=== PATIENT | male | born 1995 | race Caucasian/White ===

== ENCOUNTER 2016-07-28 13:55 | Emergency (ER) | payer OTHER ==
[2016-07-28 14:37] VITALS: BP 127/60; PULSE 66; RESP 14; TEMP 97.7; O2SAT 96
--- NOTE | 2016-07-28 15:16 | UCPHY ---
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 L index finger N/T with laceration. Time Seen by Provider: 07/28/16 15:07 HPI/ROS: CHIEF COMPLAINT: dog bite HISTORY OF PRESENT ILLNESS: The patient is a 21-year-old boy a who tried to break up a fight between his black lab and his waterman retriever. One of them bit him in the finger. Both of them are up-to-date on their vaccinations. The patient is up-to-date on his tetanus. He has a injury to his left index finger primarily to the medial aspect. There is some tissue missing. No obvious fingernail deformity. Normal sensation and movement. REVIEW OF SYSTEMS: Constitutional: denies: chills, fever, recent illness, recent injury EENTM: denies: blurred vision, double vision, nose congestion Respiratory: denies: cough, shortness of breath Cardiac: denies: chest pain, irregular heart rate, lightheadedness, palpitations Gastrointestinal/Abdominal: denies: abdominal pain, diarrhea, nausea, vomiting, blood streaked stools Genitourinary: denies: dysuria, frequency, hematuria, pain Musculoskeletal: denies: joint pain, muscle pain Skin: See HPI Neurological: denies: headache, numbness, paresthesia, tingling, dizziness, weakness Hematologic/Lymphatic: denies: blood clots, easy bleeding, easy bruising Immunologic/allergic: denies: HIV/AIDS, transplant EXAM: GENERAL: Well-appearing, well-nourished and in no acute distress. HEAD: Atraumatic, normocephalic. EYES: Pupils equal round and reactive to light, extraocular movements intact, sclera anicteric, conjunctiva are normal. ENT: TMs normal, nares patent, oropharynx clear without exudates. Moist mucous membranes. NECK: Normal range of motion, supple without lymphadenopathy or JVD. LUNGS: Breath sounds clear to auscultation bilaterally and equal. No wheezes rales or rhonchi. HEART: Regular rate and rhythm without murmurs, rubs or gallops. ABDOMEN: Soft, nontender, normoactive bowel sounds. No guarding, no rebound. No masses appreciated. BACK: No CVA tenderness, no spinal tenderness, step-offs or deformities EXTREMITIES: Left index finger with avulsion/laceration and missing tissue. It is not deep. No visible deformity or fracture. Nail or nail bed injury. normal sensation capillary refill distally. Normal range of motion, no pitting or edema. No clubbing or cyanosis. NEUROLOGICAL: Cranial nerves II through XII grossly intact. Normal speech, normal gait. 5/5 strength, normal movement in all extremities, normal sensation PSYCH: Normal mood, normal affect. SKIN: See above Source: Patient Exam Limitations: No limitations - Personal History Current Tetanus Diphtheria and Acellular Pertussis (TDAP): Yes Tetanus Vaccine Date: 2014 - Medical/Surgical History Hx Asthma: Yes Hx Chronic Respiratory Disease: No Hx Diabetes: No Hx Cardiac Disease: No Hx Renal Disease: No Hx Cirrhosis: No Hx Alcoholism: No Hx HIV/AIDS: No Hx Splenectomy or Spleen Trauma: No Other PMH: asthma - Family History Significant Family History: No pertinent family hx - Social History Smoking Status: Never smoked Alcohol Use: Sober Drug Use: None Constitutional: Initial Vital Signs Temperature (C) 36.5 C 07/28/16 14:30 Heart Rate 66 07/28/16 14:30 Respiratory Rate 14 07/28/16 14:30 Blood Pressure 127/60 H 07/28/16 14:30 O2 Sat (%) 96 07/28/16 14:30 O2 Delivery Mode Room Air Allergies/Adverse Reactions: No Known Allergies Allergy (Unverified 07/28/16 14:29) Home Medications: Medication Instructions Recorded Advair 100/50 (RX) 12/02/14 Amoxicillin/Clavulanate Pot 875 mg PO BID #14 tab 07/28/16 [Augmentin 875Mg] Medical Decision Making - Diagnostics Imaging: X-ray: Finger x-ray was obtained. I viewed the images myself on the PACS system. My interpretation of the images is: negative for acute disease . The radiologist interpretation is pending. ED Course/Re-evaluation: The patient's wound was irrigated and cleaned and dressed with antibiotic ointment and sterile gauze. Discussed risk of infection. I will leave the wound open at this point. There is not tissue to close with suture any ways. Patient understands this plan. Will obtain x-ray to rule out fracture as well. We discussed the x-ray results. Mom and patient are relieved. I will start him on Augmentin. We discussed wound care and follow-up. Differential Diagnosis: Partial list of the Differential diagnosis considered include but were not limited to; finger laceration, avulsion, puncture wound, fracture, nail bed injury and although unlikely based on the history and physical exam, I also considered burn, infection, foreign body. I discussed these differential diagnoses and the plan with the patient as well as the usual and expected course. The patient understands that the diagnosis is provisional and that in medicine we are not always correct and that further workup is often warranted. Usual and customary warnings were given. All of the patient's questions were answered. The patient was instructed to return to the emergency department should the symptoms at all worsen or return, otherwise to followup with the physician as we discussed. Departure - Departure Disposition: Home, Routine, Self-Care Clinical Impression: Dog bite Qualifiers: Encounter type: initial encounter Qualified Code(s): W54.0XXA - Bitten by dog, initial encounter Condition: Fair Instructions: Animal Bite (ED) Referrals: Tika Pruett MD [Medical Doctor] - As per Instructions Prescriptions: Amoxicillin/Clavulanate Pot [Augmentin 875Mg] 875 mg PO BID #14 tab - PQRS PQRS Measurement: Not applicable
== END 2016-07-28 15:47 | disposition home or self-care (01) ==
LOC: CED 13:55
DX: S61.251A Open bite of left index finger without damage to nail, initial encounter (principal); W54.0XXA Bitten by dog, initial encounter
CPT/HCPCS: 73140-PO; 99214-PO; G0463-PO